=== PATIENT | male | born 1995 | race Caucasian/White ===

== ENCOUNTER 2021-08-01 05:59 | Emergency (ER) | payer SELFPAY ==
[~2021-08-01] VITALS: Ht 167.6 cm; Wt 81.6 kg
--- NOTE | 2021-08-01 05:59 | NUR ---
PT ANDREINA RHODES, PREBOOK. TAKEN TO CHAIR
[2021-08-01 06:00] VITALS: BP 105/61
--- NOTE | 2021-08-01 06:39 | NUR ---
PT TAKEN TO RADIOLOGY
--- NOTE | 2021-08-01 06:45 | NUR ---
PT RETURN FROM RADIOLOGY
--- NOTE | 2021-08-01 07:43 | NUR ---
PATIENT BIB [place]. PATIENT EXAMINED BY DR. SANDERSON. PATIENT MEDICALLY CLEARED AND RELEASED IN CUSTODY IN STABLE CONDITION. ORIGINAL PRE-BOOK FORM GIVEN TO OFFICER VALENT[facility] #[id number].
--- NOTE | 2021-08-01 07:43 | NUR ---
Note say in EDM - 08/01/21 at 0745 by [email or web address] PATIENT BIB [employer]. PATIENT EXAMINED BY DR. SANDERSON. PATIENT MEDICALLY CLEARED AND RELEASED IN CUSTODY IN STABLE CONDITION. ORIGINAL PRE-BOOK FORM GIVEN TO OFFICER VALENTINA #[id number].
== END 2021-08-01 07:43 ==
LOC: MED 05:59
DX: S33.5XXA Sprain of ligaments of lumbar spine, initial encounter (principal); V89.2XXA Person injured in unspecified motor-vehicle accident, traffic, initial encounter; Y93.89 Activity, other specified; Y92.410 Unspecified street and highway as the place of occurrence of the external cause; Y99.8 Other external cause status
CPT/HCPCS: 72100; 99283